=== PATIENT | male | born 1985 | race Caucasian/White ===

== ENCOUNTER 2025-04-09 09:57 | Observation (INO) ==
[~2025-04-09 09:57] MED LIST: KETAMINE HCL ONE; ULTANE GAS IN ONE; XYLOCAINE JELLY TOP ONE
[2025-04-09] MEDS: LR 1,000 ML IV 1,000 ML IV ONE (10:20)
[2025-04-09] MEDS ORDERED: ZOFRAN INJ 4 MG VIAL ONE (10:21)
[2025-04-09] MEDS ORDERED: OFIRMEV IV 1000 MG VIAL 1,000 MG/100 ML VIAL IV ONE (10:21)
[2025-04-09] MEDS ORDERED: DIPRIVAN VIAL 20 ML ONE (10:21)
[2025-04-09] MEDS ORDERED: TORADOL 30 MG VIAL ONE (10:21)
[2025-04-09] MEDS ORDERED: DECADRON INJ ONE (10:21)
[2025-04-09] MEDS ORDERED: REGLAN INJ 10 MG VIAL ONE (10:21)
[2025-04-09] MEDS ORDERED: XYLOCAINE 2 % (PLAIN) ONE (10:21)
[2025-04-09] MEDS ORDERED: FENTANYL VIAL INJ 100 mcg ONE (10:24)
[2025-04-09] MEDS ORDERED: VERSED ONE (10:24)
[2025-04-09] MEDS ORDERED: PEPCID 20 MG VIAL ONE (10:30)
[2025-04-09] MEDS: NS 100 ML IV 100 ML ONE (10:30)
[2025-04-09] MEDS: ANCEF VIAL 1 GRAM ONE (10:34)
[2025-04-09] MEDS: BETADINE SOLN ONE (11:00)
[2025-04-09] MEDS: MARCAINE/EPINEPHRINE ONE (11:07)
[2025-04-09] MEDS: POLYMYXIN B SULFATE ONE (11:07)
[2025-04-09] MEDS ORDERED: BENADRYL INJ 50 MG VIAL IVP PRN (11:18)
[2025-04-09] MEDS ORDERED: BARHEMSYS INJ IVP PRN (11:18)
[2025-04-09] MEDS ORDERED: DILAUDID INJ IVP PRN (11:18)
[2025-04-09] MEDS ORDERED: ZOFRAN INJ 4 MG VIAL IVP PRN (11:18)
[2025-04-09] MEDS ORDERED: BENADRYL INJ 50 MG VIAL ONE (11:28)
[2025-04-09] MEDS: D5 1/2 NS 1,000 ML 1,000 ML IV SCH (12:26)
[2025-04-09 13:13] VITALS: BMI 28.3
[2025-04-09] MEDS: ANCEF VIAL 1 GRAM 1 G in NS 100 ML IV 100 ML IV SCH (13:40)
[2025-04-09] MEDS ORDERED: ANCEF VIAL 1 GRAM IVP SCH (14:00)
[2025-04-09] MEDS: MORPHINE SULFATE INJ 4 MG IVP PRN (16:47)
[2025-04-09] MEDS: ZOFRAN INJ 4 MG VIAL IV PRN (20:26)
[2025-04-09] MEDS: NORCO 5/325 MG TAB PO PRN (20:26)
[2025-04-10 07:49] VITALS: BP 119/69; PULSE 68; RESP 19; TEMP 97.7; O2SAT 95
== END 2025-04-10 09:15 | disposition home or self-care (01) ==
LOC: MED/SURG 09:57 → SURG1 09:57
PROVIDERS: ADMIT Surgery; ATTEND Surgery
DX: K64.8 Other hemorrhoids; Z72.0 Tobacco use; K64.3 Fourth degree hemorrhoids